=== PATIENT | female | born 1950 | race Caucasian/White ===

== ENCOUNTER 2020-11-28 10:56 | Emergency (ER) | payer MEDICARE, OTHER ==
[~2020-11-28 10:56] MED LIST: ADVAIR 250-501 EACH INH; AMLODIPINE BESYL5 MG PO; ASPIR 8181 MG PO; ELIQUIS2.5 MG PO; ENDOCET 7.5-321 EACH PO; IPRAT-ALBUT 0.5-3 ML INH; LEVAQUIN750 MG PO; NORTRIPTYLINE H25 MG PO; PERCOCET 10-321 EACH PO; SPIRIVA18 MCG INH; TIROSINT88 MCG PO; XANAX1 MG PO
== END 2020-11-28 12:57 | disposition home or self-care (01) ==
LOC: ER1 10:56
DX: S61.211A Laceration without foreign body of left index finger without damage to nail, initial encounter (principal); J44.9 Chronic obstructive pulmonary disease, unspecified; I10 Essential (primary) hypertension; Z88.2 Allergy status to sulfonamides; Z88.1 Allergy status to other antibiotic agents; Z23 Encounter for immunization; F17.210 Nicotine dependence, cigarettes, uncomplicated; W45.8XXA Other foreign body or object entering through skin, initial encounter; Y92.009 Unspecified place in unspecified non-institutional (private) residence as the place of occurrence of the external cause
CPT/HCPCS: 12004; 73110; 90471; 90715; 99283